=== PATIENT | male | born 1990 | race Caucasian/White ===

== ENCOUNTER 2023-10-25 11:43 | Inpatient (IN) | payer OTHER, BC ==
[2023-10-25] MEDS: SODIUM CHLORIDE 0.9% 1,000 ML IV ONE (12:38)
[2023-10-25] MEDS: SODIUM CHLORIDE 0.9% 500 ML 500 ML IV ONE (12:39)
[2023-10-25 12:44] LABS: Basophils # (A) 0.1 k/uL (0-0.2); Basophils % (A) 0 %; Eosinophils # (A) 0.3 k/uL (0-0.7); Eosinophils % (A) 1 %; HCT 46.7 % (39.0-53.0); Lymphocytes # (A) 1.3 k/uL (1.0-4.8); Lymphocytes % (A) 6 %; MCH 29.5 pg (25.0-35.0); MCHC 34.2 g/dL (31.0-37.0); MCV 86.2 fL (80.0-100.0); Monocytes # (A) 0.8 k/uL (0-1.0); Monocytes % (A) 4 %; Neutrophils # (A) 18.9 k/uL (1.3-7.7); Neutrophils % (A) 88 %; Platelet Count 505 k/uL (150-450); RBC 5.42 m/uL (4.30-5.90); RDW 13.1 % (11.5-15.5); WBC 21.4 k/uL (3.8-10.6)
[2023-10-25 12:54] LABS: AST 96 U/L (17-59); African American GFR (CKD) >90 (>60 ml/min/1.73 sqM); Albumin 4.9 g/dL (3.5-5.0); Alcohol <10 mg/dL; Alkaline Phosphatase 109 U/L (38-126); Anion Gap 18 mmol/L; Blood Urea Nitrogen 19 mg/dL (9-20); Carbon Dioxide 15 mmol/L (22-30); Chloride 106 mmol/L (98-107); Glucose 88 mg/dL (74-99); Lipase 41 U/L (23-300); Non-African American GFR(CKD) 81 (>60 ml/min/1.73 sqM); Potassium 4.2 mmol/L (3.5-5.1); Sodium 139 mmol/L (137-145); Total Bilirubin 1.5 mg/dL (0.2-1.3); Total Protein 7.9 g/dL (6.3-8.2)
[2023-10-25 13:00] LABS: ALT 49 U/L (4-49)
[2023-10-25 13:21] LABS: Creatine Kinase 2216 U/L (55-170)
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
[2023-10-25] MEDS: SODIUM CHLORIDE 0.9% 1,000 ML IV SCH (13:58)
[2023-10-25 14:09] LABS: Amphetamine Screen,Urine Not Detected (NotDetected); Barbiturate Screen,Urine Not Detected (NotDetected); Benzodiazepines Screen,Urine Detected (NotDetected); Cocaine Screen,Urine Detected (NotDetected); Methadone Screen, Urine Not Detected (NotDetected); Opiate Screen,Urine Not Detected (NotDetected); Oxycodone Screen, Urine Not Detected (NotDetected); Phencyclidine Screen,Urine Not Detected (NotDetected); Tricyclic Antidepressant,Urine Not Detected (NotDetected); Urn Cannabinoid Scrn Detected (NotDetected)
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
[2023-10-25] MEDS ORDERED: KETOROLAC 15 MG/ML 1 ML VIAL IVP PRN (15:26)
[2023-10-25] MEDS ORDERED: ONDANSETRON 4 MG/2 ML VIAL IVP PRN (15:26)
[2023-10-25] MEDS ORDERED: ACETAMINOPHEN TAB 325 MG TAB PO PRN (15:26)
[2023-10-25] MEDS ORDERED: NALOXONE 0.4 MG/ML 1 ML VIAL IV PRN (15:26)
[2023-10-25] MEDS: HYDROmorphone 0.5 MG/0.5 ML SYRINGE IVP PRN (15:56)
[2023-10-25] MEDS: LORazepam 2 MG/ML INJ IV PRN (17:53)
[2023-10-25 20:03] VITALS: RESP 20
[2023-10-26 01:41] VITALS: BP 112/66; PULSE 61; TEMP 98.6
[2023-10-26] MEDS ORDERED: LORazepam 2 MG/ML INJ ONE (17:30)
[2023-10-27] MEDS ORDERED: HYDROmorphone 0.5 MG/0.5 ML SYRINGE ONE (09:03)
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
== END 2023-10-27 23:37 | disposition home or self-care (01) | DRG 964 ==
LOC: EC 11:43 → 4SSUR 15:34 → 5NMEDONC 17:03 → 4SSUR 17:20
PROVIDERS: ADMIT Surgery; ATTEND Surgery
DX: T79.6XXA Traumatic ischemia of muscle, initial encounter (principal); S22.018A Other fracture of first thoracic vertebra, initial encounter for closed fracture; S27.322A Contusion of lung, bilateral, initial encounter; F17.210 Nicotine dependence, cigarettes, uncomplicated; S92.355A Nondisplaced fracture of fifth metatarsal bone, left foot, initial encounter for closed fracture; V47.5XXA Car driver injured in collision with fixed or stationary object in traffic accident, initial encounter; Y92.410 Unspecified street and highway as the place of occurrence of the external cause; Z79.899 Other long term (current) drug therapy
CPT/HCPCS: 29515; 36415; 70450; 71260; 72125; 74177; 80053; 80306; 80320; 82550; 83690; 84484; 85025; 93005; 96361; 96374; 96375; 99285